=== PATIENT | male | born 1960 | race Caucasian/White ===

== ENCOUNTER 2024-02-19 12:48 | Emergency (ER) | payer OTHER ==
[~2024-02-19] VITALS: Ht 172.7 cm; Wt 91.0 kg
[2024-02-19 13:03] VITALS: O2SAT 95
[2024-02-19] MEDS ORDERED: TETANUS, DIPHTHERIA, PERTUSSIS VAC/PF 0.5ML (>10YR OLD) IM ONE (13:45)
[2024-02-19] MEDS: HYDROCODONE/ACETAMINOPHEN 5/325MG TABLET PO ONE (15:21)
[2024-02-19] MEDS ORDERED: BO1 TP (17:05)
[2024-02-19] MEDS ORDERED: IBUP-2028 MT (17:05)
[2024-02-19] MEDS: LIDOCAINE HCL/PF 1% 10 MG/ML 5ML VIAL INFIL ONE (17:33)
[2024-02-19] MEDS: BACITRACIN ZINC OINT UDPKT TOP ONE (17:33)
[2024-02-19] MEDS: TETANUS, DIPHTHERIA, PERTUSSIS VAC/PF 0.5ML (>10YR OLD) IM ONE (17:35)
[2024-02-19 17:40] VITALS: BP 155/84; PULSE 78; RESP 18; TEMP 36.66960; O2SAT 95
== END 2024-02-19 17:39 | disposition home or self-care (01) ==
LOC: ER 12:48
DX: S61.411A Laceration without foreign body of right hand, initial encounter (principal); E11.9 Type 2 diabetes mellitus without complications; E78.00 Pure hypercholesterolemia, unspecified; I10 Essential (primary) hypertension; Z98.890 Other specified postprocedural states
CPT/HCPCS: 99283; 73130; 90715; 12002; 90471; J3490